=== PATIENT | female | born 1980 | race Caucasian/White ===

== ENCOUNTER 2019-01-05 08:13 | Emergency (ER) | payer OTHER ==
[~2019-01-05] VITALS: Ht 172.7 cm; Wt 145.1 kg
--- OUTSIDE RECORDS SUMMARY | 2019-01-05 08:24 | XMS REPORT ---
Author Author [facility] Organization [facility] Address [address] [place], [place] [id number] Care Team Providers Care College Tutor Name Role Phone PCP Unavailable Allergies and Adverse Reactions Name Reaction Notes NO KNOWN DRUG ALLERGIES Plan of Treatment Not available. Medications Active Name Start Date Estimated Completion Date SIG Comments diclofenac sodium oral tablet,delayed release (DR/EC) 75 mg 01/02/2015 take 1 tablet (75 mg) by oral route 2 times per day with food Problem List Description Status Onset *No known medical problems Active Vital Signs Date Time BP-Sys(mm[Hg] BP-Nickie(mm[Hg]) HR(bpm) RR(rpm) Temp WT HT HC BMI BSA BMI Percentile O2 Sat(%) 01/02/2015 10:07:00 AM 134 mmHg 78 mmHg 74 bpm 18 rpm 98 F 288 lbs 68.5 in 43.15 kg/m2 2.51 m2 97 % 12/05/2014 9:50:00 AM 136 mmHg 72 mmHg 66 bpm 16 rpm 97.6 F 284 lbs 68.5 in 42.5535 kg/m 2.4952 m 11/27/2014 9:57:00 AM 136 mmHg 70 mmHg 68 bpm 20 rpm 98 F 290 lbs 68.5 in 43.45 kg/m2 2.52 m2 Social History Name Description Comments Tobacco Current every day smoker Alcohol Use - Occasional History of Procedures Not available. Results Summary Not available. History Of Immunizations Not available. History of Past Illness Name Date of Onset Comments *No known medical problems Left hand pain Nov 27 2014 9:59AM Hand contusion, left, sequela Nov 27 2014 9:59AM Left hand pain Dec 05 2014 9:52AM Hand contusion, left, sequela Dec 05 2014 9:52AM Left hand pain Jan 02 2015 10:11AM Hand contusion, left, sequela Jan 02 2015 10:11AM Payers Insurance Name Company Name Plan Name Plan Number Policy Number Policy Group Number Start Date Res Care Res Care [id number] DOA [id number] inj Thursday, 2014 History of Encounters Visit Date Visit Type Provider 01/02/2015 Office visit Jim Crouch DO 12/05/2014 Office visit Jim Crouch DO 11/27/2014 Office visit Jim Crouch DO
--- OUTSIDE RECORDS SUMMARY | 2019-01-05 08:24 | XMS REPORT ---
Author Author Alfredito Colón [facility] Address [address] [place], [place] [address] Care Team Providers Care Product Developer Name Role Phone Alfredito Colón PCP Allergies and Adverse Reactions Name Reaction Notes NO KNOWN DRUG ALLERGIES Plan of Treatment Not available. Medications Active Name Start Date Estimated Completion Date SIG Comments ibuprofen 800 mg oral tablet take 1 tablet by oral route 3 times a day as needed hydrochlorothiazide 25 mg oral tablet take 1 tablet (25 mg) by oral route once daily cephalexin 500 mg oral capsule 12/31/2017 01/07/2018 take 1 capsule (500 mg) by oral route every 12 hours for 7 days Name Start Date Expiration Date SIG Comments diclofenac sodium oral tablet,delayed release (DR/EC) 75 mg 01/02/2015 take 1 tablet (75 mg) by oral route 2 times per day with food Problem List Not available. Vital Signs Date Time BP-Sys(mm[Hg] BP-Nickie(mm[Hg]) HR(bpm) RR(rpm) Temp WT HT HC BMI BSA BMI Percentile O2 Sat(%) 12/31/2017 3:04:00 PM 126 mmHg 80 mmHg 80 bpm 18 rpm 98.1 F 335.125 lbs 68.5 in 50.2139 kg/m 2.7105 m 98 % 01/02/2015 10:07:00 AM 134 mmHg 78 mmHg 74 bpm 18 rpm 98 F 288 lbs 68.5 in 43.15 kg/m2 2.51 m2 97 % 12/05/2014 9:50:00 AM 136 mmHg 72 mmHg 66 bpm 16 rpm 97.6 F 284 lbs 68.5 in 42.5535 kg/m 2.4952 m 11/27/2014 9:57:00 AM 136 mmHg 70 mmHg 68 bpm 20 rpm 98 F 290 lbs 68.5 in 43.4525 kg/m 2.52 m2 Social History Name Description Comments Tobacco Current every day smoker Alcohol Use - Occasional History of Procedures Date Ordered Description Order Status 12/31/2017 12:00 AM THER/PROPH/DIAG INJ SC/IM Reviewed 12/31/2017 12:00 AM TDAP VACCINE 7 YRS/> IM Reviewed 11/27/2014 12:00 AM RADEX HAND MINIMUM 3 VIEWS Reviewed 01/02/2015 12:00 AM Occupational Therapy Consult Reviewed Results Summary Not available. History Of Immunizations Name Date Admin Mfg Name Mfg Code Trade Name Lot# Route Inj Vis Given Vis Pub CVX Tdap 12/31/2017 [employer] SKB BOOSTRIX [id number] Intramuscular Right Deltoid 12/31/2017 08/16/2017 115 History of Past Illness Name Date of Onset Comments Edema Childhood asthma, mild intermittent, uncomplicated Left hand pain Nov 27 2014 9:59AM Hand contusion, left, sequela Nov 27 2014 9:59AM Left hand pain Dec 05 2014 9:52AM Hand contusion, left, sequela Dec 05 2014 9:52AM Left hand pain Jan 02 2015 10:11AM Hand contusion, left, sequela Jan 02 2015 10:11AM Puncture wound Dec 31 2017 3:16PM Payers Insurance Name Company Name Plan Name Plan Number Policy Number Policy Group Number Start Date [facility] [id number] N/A Res Care Res Care [id number] DOA [id number] inj lt Thursday, 2014 History of Encounters Visit Date Visit Type Provider 12/31/2017 Office visit Alfredito Colón NP 01/02/2015 Office visit Jim Crouch DO 12/05/2014 Office visit Jim Crouch DO 11/27/2014 Office visit Jim Crouch DO
--- OUTSIDE RECORDS SUMMARY | 2019-01-05 08:24 | XMS REPORT ---
Author Author Alfredito Colón [facility] Address [address] [place], [place] [phone] Care Team Providers Care Specialty Molder Name Role Phone Alfredito Colón PCP Allergies and Adverse Reactions Name Reaction Notes NO KNOWN DRUG ALLERGIES Plan of Treatment Planned Activity Comments Planned Date Planned Time Plan/Goal Tdap Vaccine 7 yrs & older 12/31/2017 12:00 AM Medications Active Name Start Date Estimated Completion [...] of Procedures Date Ordered Description Order Status 11/27/2014 12:00 AM RADEX HAND MINIMUM 3 [...] Policy Number Policy Group Number Start Date [facility] [id number] N/A Res Care Res Care [id number] DOA [id number] inj lt Thursday, 2014 History of Encounters Visit Date Visit Type Provider 12/31/2017 Office visit Alfredito Colón NP 01/02/2015 Office visit Jim Crouch DO 12/05/2014 Office visit Jim Crouch DO 11/27/2014 Office visit Jim Crouch DO
--- OUTSIDE RECORDS SUMMARY | 2019-01-05 08:24 | XMS REPORT | CCD ---
Author Author KIMBERLY CORDOVA Organization Unknown Address [address] [place], [place] [id number] Care Team Providers Care Regulatory Compliance Officer Name Role Phone BARR, CRISTHIAN DO Attphys BARR, CRISTHIAN DO Prisurg Vital Signs Unknown or Not Available. Allergies Unknown or Not Available. Procedures Procedure Code Procedure Type Date HAND;MINIMUM 3VWS [id number] SNOMED CT 11/05/2014 History of Immunizations Unknown or Not Available. Problems Unknown or Not Available. Results Unknown or Not Available. Active Medications Unknown or Not Available. Medications Administered During Visit Unknown or Not Available. Encounters Encounter Diagnosis Diagnosis Code Start Date CONTUSION OF HANDS 12954 11/05/2014 Social History Smoking Status Code Start Date End Date Light tobacco smoker [id number] Patient Decision Aids Unknown or Not Available. Discharge Instructions You were admitted to [facility] on 11/05/2014 with a principal diagnosis of CONTUSION OF HANDS. You were discharged from [facility] on 11/05/2014. Should you have any questions prior to discharge, please contact a member of your healthcare team. If you have left the hospital and have any questions, please contact your primary care physician. Chief Complaint and Reason For Visit Chief Complaint Date of Onset HAND INJURY Function Status Unknown or Not Available. Referral/Transition of Care Unknown or Not Available.
--- OUTSIDE RECORDS SUMMARY | 2019-01-05 08:25 | XMS REPORT ---
Author Author [facility] Organization [facility] Address [address] [place], [place] [phone] Care Team Providers Care Manager Learning Name Role Phone PCP Unavailable Allergies and Adverse Reactions Name Reaction Notes NO KNOWN DRUG ALLERGIES Plan of Treatment Not available. Medications Active Name Start Date Estimated Completion Date SIG Comments diclofenac sodium oral tablet,delayed release (DR/EC) 75 mg 11/27/2014 take 1 tablet (75 mg) by oral route 2 times per day with food Problem List Description Status Onset *No known medical problems Active Vital Signs Date Time BP-Sys(mm[Hg] BP-Nickie(mm[Hg]) HR(bpm) RR(rpm) Temp WT HT HC BMI BSA BMI Percentile O2 Sat(%) 12/05/2014 9:50:00 AM 136 mmHg 72 mmHg 66 bpm 16 rpm 97.6 F 284 lbs 68.5 in 42.55 kg/m2 2.50 m2 11/27/2014 9:57:00 AM 136 mmHg 70 mmHg 68 bpm 20 rpm 98 F 290 lbs 68.5 in 43.4525 kg/m 2.5214 m Social History Name Description Comments Tobacco Current [...] contusion, left, sequela Dec 05 2014 9:52AM Payers Insurance Name Company Name Plan Name Plan Number Policy Number Policy Group Number Start Date Res Care Res Care [id number] DOA [id number] inj lt Thursday, 2014 History of Encounters Visit Date Visit Type Provider 12/05/2014 Office visit Jim Crouch DO 11/27/2014 Office visit Jim Crouch DO
--- OUTSIDE RECORDS SUMMARY | 2019-01-05 08:25 | XMS REPORT | Clinical Summary ---
Author Author Admin, [facility] Organization All Address Unknown Phone Unavailable Allergies, Adverse Reactions, Alerts Allergy Name Reaction Description Start Date Severity Status Provider Allergies Unknown Conditions or Problems Problem Name Problem Code Onset Date Status Entry Date Provider Comment Standard Description Annotate Problems Unknown Active Medication List Medication Instructions Start Date Stop Date Generic Name NDC Status Provider Patient Instruction Drug Treatment Unknown - unknown
--- OUTSIDE RECORDS SUMMARY | 2019-01-05 08:25 | XMS REPORT ---
Author Author [facility] Organization [facility] Address [address] [place], [place] [address] Care Team Providers Care Continuous Process Rotary Drum Tanner Name Role Phone PCP Unavailable Allergies and [...] Number Start Date Res Care Res Care [id number] DOA [id number] inj Thursday, 2014 History of Encounters Visit Date Visit Type Provider 01/02/2015 Office visit Jim Crouch DO 12/05/2014 Office visit Jim Crouch DO 11/27/2014 Office visit Jim Crouch DO
--- OUTSIDE RECORDS SUMMARY | 2019-01-05 08:25 | XMS REPORT | Continuity of Care Document ---
Author Organization Unknown Address Unknown Allergies Active Description Code Type Severity Reaction Onset Reported/Identified Relationship to Patient Clinical Status Yes No known allergies Drug N/A N/A Medications There is no data. Problems There is no data. Procedures There is no data. Results There is no data. Encounters ACCT No. Visit Date/Time Discharge Status Pt. Type Provider Facility Loc./Unit Complaint [id number] 12/31/2017 16:09:00 12/31/2017 23:59:59 CLS Outpatient Alfredito Colón [id number] 03/25/2015 21:32:11 03/25/2015 23:59:59 CLS Outpatient Jim Crouch [id number] 12/05/2014 10:32:09 12/05/2014 23:59:59 CLS Outpatient Jim Crouch [id number] 11/27/2014 10:51:27 11/27/2014 23:59:59 CLS Outpatient Jim Crouch [id number] 12/20/2018 10:00:35 12/20/2018 23:59:59 DIS Outpatient SENDY ROCHA [facility] [id number] 12/20/2018 09:30:00 12/20/2018 23:59:59 DIS Outpatient SENDY ROCHA [facility] [id number] 10/19/2018 09:30:00 10/19/2018 23:59:59 CLS Outpatient SENDY ROCHA [facility] [id number] 07/26/2018 15:07:32 07/26/2018 23:59:59 DIS Outpatient SENDY ROCHA [facility] [id number] 07/26/2018 14:00:00 07/26/2018 23:59:59 DIS Outpatient SENDY ROCHA [facility] [id number] 05/09/2018 09:50:54 05/09/2018 23:59:59 DIS Outpatient SENDY ROCHA [facility] [id number] 05/09/2018 09:19:47 05/09/2018 23:59:59 DIS Outpatient SENDY ROCHA [facility] [id number] 01/11/2018 09:30:00 01/11/2018 23:59:59 CLS Outpatient SENDY ROCHA [facility] [id number] 11/26/2017 09:51:20 11/26/2017 23:59:59 [facility] [id number] 11/26/2017 10:01:12 Document Registration [id number] 08/11/2017 09:09:57 ACT Unknown
[2019-01-05] MEDS ORDERED: KETOROLAC 60 MG/2 ML VIAL IM STA (08:46)
[2019-01-05] MEDS ORDERED: morphine INJ 10 MG/ML 1ML (SYR OR VIAL) IM STA (08:46)
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
[2019-01-05] MEDS ORDERED: ACHD5005 PO (10:11)
[2019-01-05 10:22] VITALS: BP 134/84
--- NOTE | 2019-01-05 10:22 | NUR ---
C COLLAR REMOVED BY DR ALBERT.
== END 2019-01-05 10:22 | disposition home or self-care (01) ==
LOC: EDUNIT# 08:13 → ER 08:18
DX: S49.91XA Unspecified injury of right shoulder and upper arm, initial encounter (principal); R07.9 Chest pain, unspecified; R40.2142 Coma scale, eyes open, spontaneous, at arrival to emergency department; R40.2252 Coma scale, best verbal response, oriented, at arrival to emergency department; R40.2362 Coma scale, best motor response, obeys commands, at arrival to emergency department; Z90.710 Acquired absence of both cervix and uterus; V43.52XA Car driver injured in collision with other type car in traffic accident, initial encounter
CPT/HCPCS: 71046; 73030; 96372